=== PATIENT | female | born 1965 | race Native Hawaiian/Other Pacific Islander ===

== ENCOUNTER 2020-02-13 19:36 | Emergency (ER) | payer OTHER ==
[~2020-02-13] VITALS: Ht 165.1 cm; Wt 71.2 kg
[2020-02-13 20:38] LABS: PLATELET COUNT 210 K/uL (152-353)
[2020-02-13 20:46] LABS: POTASSIUM 3.4 mmol/L (3.6-5.2)
[2020-02-13 21:13] VITALS: BP 103/57; TEMP 98.1
[2020-02-14] MEDS ORDERED: ZIPR20IN IM (00:34)
[2020-02-14] MEDS ORDERED: MEMA10TA2 PO (00:36)
[2020-02-14] MEDS ORDERED: OXCARBAZEPIN300 MG PO (00:39)
[2020-02-14] MEDS ORDERED: TEMA15CA19 PO (00:40)
[2020-02-14] MEDS ORDERED: THIA100T8 PO (00:42)
[2020-02-14] MEDS ORDERED: TOPAMAX25 MG PO (00:43)
[2020-02-14] MEDS ORDERED: TRAZ50TA36 PO (00:45)
[2020-02-14] MEDS ORDERED: AMANTADINE (00:47)
[2020-02-14] MEDS ORDERED: ASPIRIN ADULT L81 M1 PO (00:49)
[2020-02-14] MEDS ORDERED: LIPITOR40 MG PO (00:50)
[2020-02-14] MEDS ORDERED: DIVA250T PO (00:51)
[2020-02-14] MEDS ORDERED: DONEPEZIL HYDRO10 M1 PO (00:52)
[2020-02-14] MEDS ORDERED: ACID CONTROL MA20 MG (00:53)
[2020-02-14] MEDS ORDERED: KP FOLIC ACID1 MG PO (00:54)
[2020-02-19] MEDS ORDERED: OXCARBAZEPIN300 MG PO (15:57)
[2020-02-19] MEDS ORDERED: RISP0.25 PO (15:57)
[2020-02-19] MEDS ORDERED: ESCI10TA PO (15:58)
[2020-02-19] MEDS ORDERED: AMANTADINE100 MG PO (15:58)
== END 2020-02-13 21:15 | disposition other institution (70) ==
LOC: ED 19:36
PROVIDERS: Family Medicine
DX: F03.91 Unspecified dementia, unspecified severity, with behavioral disturbance (principal); E87.6 Hypokalemia; Z03.818 Encounter for observation for suspected exposure to other biological agents ruled out; Z04.6 Encounter for general psychiatric examination, requested by authority
CPT/HCPCS: 36415; 80053; 81000; 85027; 87635; 93005; 96372; 99283; 99285; J3486; U0002